=== PATIENT | female | born 1985 | race Caucasian/White ===

== ENCOUNTER 2020-06-08 04:12 | Emergency (ER) | payer OTHER ==
[~2020-06-08] VITALS: Ht 172.7 cm; Wt 79.4 kg
[2020-06-08] MEDS ORDERED: AUGMENTIN 875-1 EACH PO (05:02)
[2020-06-08] MEDS ORDERED: TRAMADOL 50 MG50 MG PO (05:02)
[2020-06-08 05:58] VITALS: BP 127/68
== END 2020-06-08 06:02 | disposition home or self-care (01) ==
LOC: ER 04:12
DX: T23.201A Burn of second degree of right hand, unspecified site, initial encounter (principal); L03.113 Cellulitis of right upper limb; Z88.8 Allergy status to other drugs, medicaments and biological substances; X13.1XXA Other contact with steam and other hot vapors, initial encounter; Y93.89 Activity, other specified; Y92.89 Other specified places as the place of occurrence of the external cause; Y99.8 Other external cause status